=== PATIENT | male | born 1990 | race Caucasian/White ===

== ENCOUNTER 2020-05-04 12:32 | Outpatient (CLI) | payer OTHER, SELFPAY ==
[2020-05-08 14:00] LABS: Testosterone Free 267.5 pg/mL (35.0-155.0); Testosterone Total 877 ng/dL (250-1100)
== END 2020-05-04 12:33 | disposition home or self-care (01) ==
PROVIDERS: PCP Family Medicine; Visit Provider Nurse Practitioner Family
DX: E29.1 Testicular hypofunction (principal)
CPT/HCPCS: 36415; 84402; 84403

== ENCOUNTER 2020-10-29 10:59 | Outpatient (CLI) | payer OTHER, SELFPAY ==
[2020-10-29 11:16] LABS: Hematocrit 50.9 % (42.0-52.0)
[2020-11-05 19:42] LABS: Testosterone Free 128.4 pg/mL (35.0-155.0); Testosterone Total 479 ng/dL (250-1100)
== END 2020-10-29 11:00 | disposition home or self-care (01) ==
PROVIDERS: PCP Family Medicine; Visit Provider Nurse Practitioner Family
DX: E34.9 Endocrine disorder, unspecified (principal)
CPT/HCPCS: 36415; 84402; 84403; 85014; 85018

== ENCOUNTER 2021-02-14 01:58 | Day surgery (SDC) | payer OTHER, SELFPAY ==
[2021-01-31 15:31] VITALS: BMI 34.0
[2021-02-14 10:26] VITALS: BP 160/99; PULSE 87; RESP 24; TEMP 37.1; O2SAT 99; BMI 33.7
[2021-02-14] MEDS: LACTATED RINGERS 1,000 ML 150 ML IV CONT (10:34)
--- NOTE | 2021-02-14 10:35 | WPDANESEPPF ---
Anes - Initial Pre Proc Eval Procedure: Operation Date: 02/14/21 11:30 Proposed Procedures p Colonoscopy - Royer Cates MD Date/Time: 02/14/21 10:35 Surgeon: Royer Cates MD Pre Op Diagnosis: blood in stool Patient Data Age: 30 Gender: M Height: 1.83 m Weight: 113.1 kg Last Vital Signs Temp 37.1 C 02/14/21 10:26 Pulse 87 02/14/21 10:26 Resp 24 H 02/14/21 10:26 BP 160/99 H 02/14/21 10:26 Pulse Ox 99 02/14/21 10:26 Allergies Allergy/AdvReac Type Severity Reaction Status Date / Time No Known Allergies Allergy Verified 02/14/21 10:25 Home Medications Medication Instructions Recorded Confirmed Type testosterone cypionate 200 mg/mL 200 mg IM .bi weekly #10 ml 10/20/20 01/31/21 Rx intramuscular oil flaxseed 1,000 mg PO DAILY 01/31/21 01/31/21 History gvjmpsdymjyk-hzb-omhp-FA-vit K 1 tablet PO DAILY 01/31/21 01/31/21 History [Adults Multivitamin] valacyclovir [Valtrex] 2,000 mg PO PRN PRN 01/31/21 01/31/21 History Patient hx anesthesia problems: none Family hx anesthesia problems: none Results Review: All pre-operative results and documents have been reviewed as part of the pre-operative evaluation. [facility] Past Medical History Medical History BMI 33.0-33.9,adult BMI 34.0-34.9,adult Family History Family History Father Hypertension Family history of elevated blood lipids Grandparent Hypertension Family history of elevated blood lipids Family history of lung cancer Family history of coronary artery disease Diabetes mellitus Sibling No problems noted. 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 Informed Consent: The patient's anesthetic plan and its attendant risks and benefits were discussed with the patient/family/POA. Questions were solicited and answers provided to the satisfaction of the patient/family/POA.
--- NOTE | 2021-02-14 10:52 | PM.HPGS ---
History of Present Illness History of Present Illness Consent: Risks, benefits, and alternatives have been discussed and questions answered. Patient agrees to proceed with procedure. Chief complaint: blood in stool Narrative: Guero Robert is a 30 year old male with intermittent rectal bleeding, never had colonoscopy Review of Systems Constitutional: Constitutional: Denies headache(s) and Denies weakness Eyes: Eyes: Denies blurry vision ENT: Reports Normal hearing present, Denies headache(s) and Denies neck pain Cardiovascular: Cardiovascular: Denies chest pain and Denies dyspnea Respiratory: Respiratory: Denies dyspnea Gastrointestinal: Gastrointestinal: Reports no additional gastrointestinal complaints Genitourinary: Genitourinary: Denies dysuria Musculoskeletal: Musculoskeletal: Denies neck pain Integumentary/Breasts: Skin/Breast: Denies dry skin Neurologic: Reports Normal hearing present, Denies headache(s) and Denies weakness Psychiatric: Psychiatric: Denies anxiety Endocrine: Endocrine: Denies change in body appearance Hematologic/Lymphatic: Hematologic/Lymphatic: Denies easy bleeding Allergic/Immunologic: Allergic/Immunologic: Denies urticaria PMFSH Past Medical History Medical History BMI 33.0-33.9,adult BMI 34.0-34.9,adult Family History Family History Father Hypertension Family history of elevated blood lipids Grandparent Hypertension Family history of elevated blood lipids Family history of lung cancer Family history of coronary artery disease Diabetes mellitus Sibling No problems noted. 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 Gender identity (if verbalized by the patient): Male Spiritual care concerns: No Meds Home Medications and Allergies Home Medications Medication Instructions Recorded Confirmed Type testosterone cypionate 200 mg/mL 200 mg IM .bi weekly #10 ml 10/20/20 01/31/21 Rx intramuscular oil flaxseed 1,000 mg PO DAILY 01/31/21 01/31/21 History ikfsdqnbfewf-yzk-otti-FA-vit K 1 tablet PO DAILY 01/31/21 01/31/21 History [Adults Multivitamin] valacyclovir [Valtrex] 2,000 mg PO PRN PRN 01/31/21 01/31/21 History Allergies Allergy/AdvReac Type Severity Reaction Status Date / Time No Known Allergies Allergy Verified 02/14/21 10:25 Vital Signs Vital Signs - 24 hr 02/14/21 10:26 Temperature 98.7 F Pulse Rate 87 Respiratory Rate 24 H Blood Pressure 160/99 H Pulse Oximetry 99 Exam Const: General: comfortable and no acute distress HENMT: General nose exam: Normal nares present Eyes: General: appearance normal, both eyes and all related structures Neck: Neck: no JVD Resp: Auscultation: clear to auscultation bilaterally Cardio: Rate: regular rate Rhythm: regular rhythm GI: Inspection: non-distended GI Palp: Yes Soft to palpation Skin: General skin exam: normal color Neuro: General: gait normal Speech: normal speech Extrem: General: normal to inspection Psych: Mental Status: mental status grossly normal Assessment and Plan Assessment and plan (1) Hematochezia: Code(s): K92.1 - Melena Status: Acute Assessment and Plan: colonoscopy to assess source of bleeding
[2021-02-14 11:23] VITALS: BP 125/83; PULSE 94; RESP 25; O2SAT 98
[2021-02-14 11:33] VITALS: BP 136/95; PULSE 82; RESP 22; O2SAT 98
[2021-02-14 11:43] VITALS: BP 133/91; PULSE 83; RESP 13; O2SAT 98
== END 2021-02-14 11:59 | disposition home or self-care (01) ==
PROVIDERS: PCP Family Medicine; Visit Provider Internal Medicine Gastroenterology
PROC: 0DJD8ZZ Inspection of Lower Intestinal Tract, Via Natural or Artificial Opening Endoscopic (ICD-10-PCS; CPT 45378; principal; 2021-02-14 11:30)
DX: K92.1 Melena (principal); K64.8 Other hemorrhoids; Z87.891 Personal history of nicotine dependence
CPT/HCPCS: 45378; J2704; J7120

== ENCOUNTER 2021-09-21 10:26 | Outpatient (CLI) | payer OTHER, SELFPAY ==
[2021-09-25 18:10] LABS: Testosterone Free 80.5 pg/mL (35.0-155.0); Testosterone Total 347 ng/dL (250-1100)
== END 2021-09-21 10:27 | disposition home or self-care (01) ==
LOC: ANHLAB 10:28
PROVIDERS: PCP Family Medicine; Visit Provider Nurse Practitioner Family
DX: E34.9 Endocrine disorder, unspecified (principal)
CPT/HCPCS: 36415; 84402; 84403

== ENCOUNTER 2021-11-17 07:03 | Outpatient (CLI) | payer OTHER, SELFPAY ==
[2021-11-17 07:25] LABS: Hematocrit 50.6 % (42.0-52.0); Hemoglobin 16.9 g/dL (14.0-18.0); Mean Corpuscular HGB Conc 33.4 g/dl (32-36); Mean Corpuscular Volume 89.7 fl (80-100); Mean Platelet Volume 9.9 fl (7.4-10.4); Platelet Count Result 240 k/mm3 (150-375); Red Blood Count 5.64 M/mm3 (4.6-6.20); Red Cell Distribution Width 12.7 % (11.5-14.5); White Blood Count 5.6 K/mm3 (4.5-10.0)
[2021-11-17 07:43] LABS: Alanine Aminotransferase 21 U/L (6-50); Albumin Level 4.6 g/dL (3.5-5.1); Alkaline Phosphatase 57 U/L (38-126); Anion Gap 10 mmol/L (8-16); Aspartate Amino Transferase 33 U/L (17-59); Bilirubin,Total 0.5 mg/dL (0.2-1.3); Blood Urea Nitrogen 16 mg/dL (9-20); Calcium 9.2 mg/dL (8.4-10.2); Carbon Dioxide 25 mmol/L (22-30); Chloride 101 mmol/L (98-107); Cholesterol 243 mg/dL (0-200); Estimated Glomerular Filt Rate > 60; Glucose 111 mg/dL (65-110); HDL Direct 32 mg/dL; Potassium 4.4 mmol/L (3.4-5.0); Sodium 136 mmol/L (137-145); Triglycerides 136 mg/dL (<150)
[2021-11-17 07:54] LABS: LDL Cholesterol Direct 163 mg/dL
[2021-11-17 08:08] LABS: Prostate Specific Antigen 0.7 ng/mL (< OR = 4.0)
[2021-11-21 17:33] LABS: Testosterone Free 70.8 pg/mL (35.0-155.0); Testosterone Total 265 ng/dL (250-1100)
== END 2021-11-17 07:04 | disposition home or self-care (01) ==
LOC: ANHLAB 07:04
PROVIDERS: PCP Family Medicine; Visit Provider Nurse Practitioner Family
DX: E29.1 Testicular hypofunction (principal); I10 Essential (primary) hypertension
CPT/HCPCS: 36415; 80053; 80061; 84153; 84402; 84403; 84443; 85027

== ENCOUNTER 2021-12-06 08:41 | Outpatient (CLI) | payer OTHER, SELFPAY ==
--- NOTE | 2022-01-04 20:28 | WPDSLEEPSTUD ---
Sleep Study Date of Study: 12/06/21 Ordering Provider: Vasiliy Kam MD Interpreting Physician: Ladonna Espinoza MD Sleep Study Type: Split Polysomnogram Height: 1.83 m Weight: 118.388 kg Body Mass Index: 35.4 Neck Circumference (inches): 18.5 [place]: 10 Reason for Sleep Study Frequent nighttime awakenings, loud snoring, daytime fatigue even after 8 hours of sleep Sleep History Guero Robert is a 31-year-old man with hypertension who complains of heavy snoring. He is tired in the day even after 8 hours of sleep. His has witnessed apneas. There is a family history with both his father and brother having sleep apnea. He rarely wakes from sleep feeling short of breath. He occasionally awakens at night with heartburn, belching or coughing. His snoring is always extremely loud. He frequently has trouble sleeping with a cold. He occasionally wakes up gasping for breath at night. He constantly has breathing problems at night observed by others. He occasionally sweats excessively at night and occasionally notices his heart beating irregularly at night. He frequently naps regularly when he is not working. 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 he does not fall asleep involuntarily, or while driving. He does not have loss of muscle tone with strong emotion. He rarely has daytime difficulties due to excessive sleepiness. He does not feel paralyzed on waking or falling asleep and does not have vivid dreamlike scenes upon awakening or falling asleep. He does not feel afraid to go to sleep. He occasionally has nightmares. He occasionally has dream recall. He frequently has racing thoughts. He does not feel sad or depressed. He rarely has anxiety. He does not have muscular tension or notice parts of his body jerking. He does not kick at night. He does not have crawling or aching feelings in his legs. He does not have any kind of leg pain at night. He rarely has morning jaw pain. He is not bothered by pain during the day or awakened by pain during the night. He frequently wakes up feeling stiff in the morning. He rarely wakes up with sore achy muscles. He occasionally wakes up with pain in the neck and spine. He has fatigue and he takes antacids regularly. Normal Bedtime is 8:00 p.m. falling asleep within 30 minutes, typically waking 6-8 times at night to reposition himself and then returns to sleep within about 15 minutes. He wakes in the morning by 6:30 a.m.. On weekends, goes to bed by 10:00 p.m. and wakes by 7:00 a.m.. He previously work split or rotating shifts until several weeks before this test. He takes naps in the afternoon or evening. A short nap does not feel refreshing. He is usually drowsy in the morning for about 2 hours after waking. He feels better in the evening compared to other times of day. Habits: Quit tobacco 6 years ago. Caffeine 6 cups of beverages throughout the day. Alcohol 6-8 ever does on the weekends. No recreational drugs PMFSH Past Medical History Medical History (Updated 01/09/22 @ 12:23 by Ladonna Espinoza MD) BMI 33.0-33.9,adult BMI 34.0-34.9,adult BMI 35.0-35.9,adult GERD without esophagitis Hypertension Family History Family History Father Hypertension Family history of elevated blood lipids Sleep apnea Grandparent Hypertension Family history of elevated blood lipids Family history of lung cancer Family history of coronary artery disease Diabetes mellitus Sibling Sleep apnea Mother Anxiety Social History Social History Smoking packs per day: 0.5 Smoking cigarettes per day: 10.0 Years smoked: 5 Smoking pack-years: 2.50 Smoking status: Former smoker Tobacco type: cigarettes Second hand tobacco smoke exposure: No Alcohol intake: current Drinks per week: 12 Alcohol use details: 12 beers weekly, recently cut back Substance use: never
[2022-01-09 12:14] VITALS: BMI 35.4
== END 2021-12-07 06:30 | disposition home or self-care (01) ==
LOC: ANHCSM 08:43
PROVIDERS: PCP Family Medicine; Visit Provider Family Medicine
DX: G47.33 Obstructive sleep apnea (adult) (pediatric) (principal); G47.10 Hypersomnia, unspecified; F51.8 Other sleep disorders not due to a substance or known physiological condition
CPT/HCPCS: 95811

== ENCOUNTER 2023-06-21 07:48 | Outpatient (CLI) | payer BC, SELFPAY ==
[2023-06-21 09:05] LABS: Anion Gap 8 mmol/L (8-16); Blood Urea Nitrogen 19 mg/dL (9-20); Calcium 9.6 mg/dL (8.4-10.2); Carbon Dioxide 27 mmol/L (22-30); Chloride 104 mmol/L (98-107); Cholesterol 274 mg/dL (0-200); Estimated Glomerular Filt Rate > 60; Glucose 109 mg/dL (65-110); HDL Direct 37 mg/dL; Potassium 4.5 mmol/L (3.4-5.0); Sodium 139 mmol/L (137-145); Triglycerides 215 mg/dL (<150)
[2023-06-21 09:16] LABS: LDL Cholesterol Direct 185 mg/dL
[2023-06-21 09:24] LABS: Hematocrit 45.2 % (42.0-52.0); Hemoglobin 15.2 g/dL (14.0-18.0); Mean Corpuscular HGB Conc 33.6 g/dl (32-36); Mean Corpuscular Hemoglobin 29.8 pg (26-34); Mean Corpuscular Volume 88.6 fl (80-100); Mean Platelet Volume 10.6 fl (7.4-10.4); Platelet Count Result 251 k/mm3 (150-375); Red Cell Distribution Width 12.5 % (11.5-14.5); White Blood Count 5.6 K/mm3 (4.5-10.0)
[2023-06-24 12:54] LABS: FSH 5.9 mIU/mL (1.4-12.8); LH 4.4 mIU/mL (1.5-9.3)
[2023-06-28 10:11] LABS: Testosterone Free 57.7 pg/mL (35.0-155.0); Testosterone Total 186 ng/dL (250-1100)
== END 2023-06-21 07:49 | disposition home or self-care (01) ==
LOC: ANHLAB 07:49
PROVIDERS: PCP Family Medicine; Visit Provider Family Medicine
DX: E29.1 Testicular hypofunction (principal); I10 Essential (primary) hypertension; E34.9 Endocrine disorder, unspecified; Z13.220 Encounter for screening for lipoid disorders
CPT/HCPCS: 36415; 80048; 80061; 83001; 83002; 84402; 84403; 84443; 85027

== ENCOUNTER 2023-08-13 16:13 | Outpatient (CLI) | payer BC, SELFPAY ==
--- NOTE | ~2023-08-13 | XR_ITS ---
EXAMINATION: XR chest 2V Exam Date/Time: 08/13/2023 16:20 CDT HISTORY: R07.89 - Other chest pain Comparison: None. RESULT: Lines, tubes, and devices: None. Lungs and pleura: Clear. Cardiomediastinal silhouette: Unremarkable. Other: No acute osseous or upper abdominal finding. IMPRESSION: No acute cardiopulmonary process. Reviewed, dictated and finalized at location K.
== END 2023-08-13 16:14 | disposition home or self-care (01) ==
LOC: ANHIMG 16:15
PROVIDERS: PCP Family Medicine; Visit Provider Nurse Practitioner Family
DX: R07.89 Other chest pain (principal)
CPT/HCPCS: 71046

== ENCOUNTER 2023-10-10 11:50 | Outpatient (CLI) | payer BC, SELFPAY ==
[2023-10-10 12:21] LABS: Hemoglobin A1C 5.3 % (<5.7)
[2023-10-10 12:23] LABS: Basophils Percent Auto 0.7 % (0.2-1.2); Eosinophils Absolute Auto 0.1 K/mm3 (0-0.3); Eosinophils Percent Auto 1.5 % (0-4.4); Hematocrit 47.8 % (42.0-52.0); Hemoglobin 16.1 g/dL (14.0-18.0); Immature Granulocyte Absolute 0.03 K/mm3 (0.00-0.031); Immature Granulocyte Percent A 0.5 % (0-0.5); Lymphocytes Absolute Auto 2.29 K/mm3 (0.9-3.2); Lymphocytes Percent Auto 39.3 % (18.3-44.2); Mean Corpuscular HGB Conc 33.7 g/dl (32-36); Mean Corpuscular Hemoglobin 30.1 pg (26-34); Mean Corpuscular Volume 89.3 fl (80-100); Mean Platelet Volume 9.8 fl (7.4-10.4); Monocytes Absolute Auto 0.5 K/mm3 (0.1-0.6); Monocytes Percent Auto 9.1 % (2.6-8.5); Neutrophils Absolute Auto 2.8 K/mm3 (1.3-6.7); Neutrophils Percent Auto 48.9 % (45.5-73.1); Platelet Count Result 253 k/mm3 (150-375); Red Blood Count 5.35 M/mm3 (4.6-6.20); Red Cell Distribution Width 12.3 % (11.5-14.5); White Blood Count 5.8 K/mm3 (4.5-10.0)
[2023-10-15 06:23] LABS: Testosterone Free 183.9 pg/mL (35.0-155.0); Testosterone Total 620 ng/dL (250-1100)
== END 2023-10-10 11:51 | disposition home or self-care (01) ==
LOC: ANHLAB 11:52
PROVIDERS: PCP Family Medicine; Visit Provider Physician Assistant Medical
DX: E29.1 Testicular hypofunction (principal); I10 Essential (primary) hypertension; E34.9 Endocrine disorder, unspecified
CPT/HCPCS: 36415; 83036; 84402; 84403; 85025

== ENCOUNTER 2023-11-29 08:29 | Outpatient (CLI) | payer BC, SELFPAY ==
--- NOTE | 2023-11-29 08:38 | EST_ITS ---
Patient Info Name: Guero Robert Age: 33 years : 1990 Gender: Male Ht: 72 in Wt: 256 lbs BSA: 2.47 m2 HR: 76 bpm BP: 141 / 87 mmHg Heart Rhythm: Sinus Rhythm Exam Date: 11/29/2023 8:50 AM Exam Location: [facility] Patient Status: Outpatient Admit Date: 11/29/2023 Staff Ordering Physician: Stephanie Bell PAC Attending Provider: Stephanie Bell Exercise Technologist: Florina Smith, BANDAR Exercise Physician: Ford Kim DO Exam Type: CA stress test treadmill Study Info Indications R07.89 - Other chest pain A treadmill exercise stress test was performed. Summary 1. 1. Negative Adam exercise stress test for ischemic ST changes by ECG criteria. 2. 2. Good functional capacity, achieving 12 METs of workload. 3. 3. Appropriate HR response to exercise. 4. 4. Appropriate HR recovery at 1 minute post exercise. 5. 5. No imaging with stress testing. 6. 6. Patient informed of the above results. Protocol: Adam Stress ECG Details Stage: REST Duration (min): 1 min : 6 sec Speed (mph): 0.0 Grade (%): 0 HR (bpm): 73 SBP (mmHg): 141 DBP (mmHg): 87 METS: --- Stage: REST Duration (min): 5 min : 47 sec Speed (mph): 0.0 Grade (%): 0 HR (bpm): 84 SBP (mmHg): 141 DBP (mmHg): 87 METS: --- Stage: STAGE 1 Duration (min): 1 min : 0 sec Speed (mph): 1.7 Grade (%): 10 HR (bpm): 103 SBP (mmHg): 141 DBP (mmHg): 87 METS: --- Stage: STAGE 1 Duration (min): 2 min : 0 sec Speed (mph): 1.7 Grade (%): 10 HR (bpm): 104 SBP (mmHg): 141 DBP (mmHg): 87 METS: --- Stage: STAGE 1 Duration (min): 3 min : 0 sec Speed (mph): 1.7 Grade (%): 10 HR (bpm): 108 SBP (mmHg): 147 DBP (mmHg): 84 METS: --- Stage: STAGE 2 Duration (min): 1 min : 0 sec Speed (mph): 2.5 Grade (%): 12 HR (bpm): 118 SBP (mmHg): 147 DBP (mmHg): 84 METS: --- Stage: STAGE 2 Duration (min): 2 min : 0 sec Speed (mph): 2.5 Grade (%): 12 HR (bpm): 125 SBP (mmHg): 155 DBP (mmHg): 81 METS: --- Stage: STAGE 2 Duration (min): 3 min : 0 sec Speed (mph): 2.5 Grade (%): 12 HR (bpm): 125 SBP (mmHg): 155 DBP (mmHg): 81 METS: --- Stage: STAGE 3 Duration (min): 1 min : 0 sec Speed (mph): 3.4 Grade (%): 14 HR (bpm): 134 SBP (mmHg): 154 DBP (mmHg): 62 METS: --- Stage: STAGE 3 Duration (min): 2 min : 0 sec Speed (mph): 3.4 Grade (%): 14 HR (bpm): 135 SBP (mmHg): 154 DBP (mmHg): 62 METS: --- Stage: STAGE 3 Duration (min): 3 min : 0 sec Speed (mph): 3.4 Grade (%): 14 HR (bpm): 140 SBP (mmHg): 179 DBP (mmHg): 73 METS: --- Stage: STAGE 4 Duration (min): 1 min : 0 sec Speed (mph): 4.2 Grade (%): 16 HR (bpm): 158 SBP (mmHg): 179 DBP (mmHg): 73 METS: --- Stage: STAGE 4 Duration (min): 2 min : 0 sec Speed (mph): 4.2 Grade (%): 16 HR (bpm): 163 SBP (mmHg): 180 DBP (mmHg): 78 METS:
== END 2023-11-29 08:30 | disposition home or self-care (01) ==
PROVIDERS: PCP Family Medicine; Visit Provider Physician Assistant Medical
DX: R07.89 Other chest pain (principal)
CPT/HCPCS: 93017

== ENCOUNTER 2024-02-08 07:05 | Outpatient (CLI) | payer BC, SELFPAY ==
--- NOTE | ~2024-02-08 | CT_ITS ---
EXAMINATION:CT diagnostic chest wo con DATE: 02/08/2024 07:26 INDICATION: Other chest pain. TECHNIQUE: Computed tomography (CT) of the chest was performed without intravenous contrast. Automate d exposure control and iterative reconstruction technique were employed. The dose-length product (DLP ) was 713.43 mGy-cm. COMPARISON: Chest 2 views 08/13/2023 FINDINGS: There is no pneumonia or pleural effusion. The heart size is normal. No pericardial effusio n. There is diffuse hepatic steatosis. There is mild bilateral gynecomastia. There is no lymphadenopa thy. There is mild thoracic spondylosis. There is levoscoliosis of upper thoracic spine. IMPRESSION: 1. Diffuse hepatic steatosis. Reviewed, dictated and finalized at location B.
== END 2024-02-08 07:06 | disposition home or self-care (01) ==
LOC: ANHIMG 07:08
PROVIDERS: PCP Family Medicine; Visit Provider Internal Medicine Cardiovascular Disease
DX: R07.89 Other chest pain (principal); K76.0 Fatty (change of) liver, not elsewhere classified
CPT/HCPCS: 71250

== ENCOUNTER 2024-03-23 11:34 | Emergency (ER) | payer BC, SELFPAY ==
--- NOTE | ~2024-03-23 | CT_ITS ---
Noncontrast CT scan of the right hip CLINICAL HISTORY: Pain TECHNIQUE: Axial noncontrast imaging of the right hip was performed. Sagittal and coronal reformatted images were constructed. Dose reduction technique was used on this scan by utilizing automated expos ure control and iterative reconstruction technique. The dose-length product (DLP) was 744.43 mGy-cm. Findings: No fracture or dislocation seen. Right hip joint space is unremarkable. Bilateral SI joints are unremarkable. No joint effusion evident. Visualized musculature about the right hip region is unremarkable. No soft tissue mass or fluid colle ction identified. No inflammatory change identified. IMPRESSION: No significant abnormality seen. Reviewed, dictated and finalized at location . ER TROLL LINE
--- NOTE | ~2024-03-23 | XR_ITS ---
AP view of the pelvis and AP and lateral views of the right hip Clinical history: Pain Findings: No acute fracture or dislocation is seen. Osseous alignment is anatomic. Bilateral hip and SI joint spaces are preserved. Soft tissues are unremarkable. Impression: No significant abnormality is seen. Reviewed, dictated and finalized at [facility]. 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
[2024-03-23 11:54] VITALS: BP 144/89; PULSE 91; RESP 20; TEMP 36.9; O2SAT 99
[2024-03-23] MEDS: MORPHINE SULFATE (*CRX) 4 MG/ML INJ IV PUSH (12:06)
--- NOTE | 2024-03-23 14:39 | ED_ITS ---
HPI - General Adult General Chief complaint: Extremity Injury, Lower Stated complaint: R thigh pain Time Seen by Provider: 03/23/24 11:59 History of Present Illness HPI narrative: the patient is a 33-year-old gentleman presents emergency department with chief complaint of right posterior thigh pain. The patient reports he was moving a treadmill reported that he felt a tearing sensation in his right buttock area. Patient reports the pain radiated down his right mid thigh patient denies numbness or tingling denies bowel or bladder incontinence. Related Data Home Medications ?Medication ?Instructions ?Recorded ?Confirmed ?Last Taken ?Type multivit with minerals-iron 18 1 tablet PO DAILY 01/31/21 03/04/24 02/12/21 History mg-folic ac 400 mcg-vit K 25 mcg tablet (Adults Multivitamin) psyllium husk 0.4 gram capsule 0.4 g PO DAILY 08/13/23 03/04/24 Unknown History (Daily Fiber) Allergies Allergy/AdvReac Type Severity Reaction Status Date / Time lisinopril AdvReac Intermediate cough Verified 03/04/24 15:01 Review of Systems Review of Systems: A 10 system review of systems was completed on the patient and is negative except for what is stated in the HPI. Nursing and ancillary documentation was reviewed. [facility] Past Medical History Medical History Witnessed apneic spells Hypertension BMI 35.0-35.9,adult Edmondson splint of right lower extremity Erectile dysfunction GERD without esophagitis Herpes simplex without complication Surgical History Surgical History Hx of circumcision H/O adenoidectomy Family History Family History Father Hypertension Family history of elevated blood lipids Sleep apnea Grandparent Hypertension Family history of elevated blood lipids Family history of lung cancer Family history of coronary artery disease Diabetes mellitus Sibling Sleep apnea Mother Anxiety Social History Social History Smoking packs per day: 0.5 Smoking cigarettes per day: 10.0 Years smoked: 5 Smoking pack-years: 2.50 Smoking status: Former smoker Tobacco type: cigarettes Second hand tobacco smoke exposure: No Alcohol intake: current Drinks per week: 12 Alcohol use details: 12 beers weekly, recently cut back Substance use: never Substance use type: does not use Do You Feel Safe in your Home?: Yes Lack of Transportation: No Lack of Food: Never True Current Housing: I Have Housing Concerned About Future Housing: No Difficulty Paying Gas/Electric Bills: No Difficulty Paying for Meds: No Currently Unemployed: No Education: Bachelor's Degree Difficulty w/ Childcare or Family Care: No Living arrangements: with family Occupation/Education: occupation 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 HEAD: Normocephalic, atraumatic. EYES: PERRLA and EOMI. ENT: Nares clear, no rhinorrhea or epistaxis. Mucous membranes moist. NECK: Supple. CHEST: Clear to auscultation. No respiratory distress. HEART: Regular rate and rhythm. No murmur heard. Normal peripheral pulses. ABDOMEN: Soft, nontender, nondistended, normal active bowel sounds. EXTREMITIES: Normal range of motion Tenderness palpation the right gluteal region. No edema. SKIN: Warm, dry, no rash. NEURO: No focal deficits. Alert and oriented x3. PSYCH: Normal mood and affect. Course Course Emergency Course: differential diagnosis includes fracture, muscle strain plain film x-ray showed no evidence of fracture. CT scan showed no evidence of fluid collection or injury to the muscle Vital Signs Vital signs: Vital Signs Temperature 36.9 C 03/23/24 11:54 Pulse Rate 91 03/23/24 11:54 Respiratory Rate 20 03/23/24 11:54 Blood Pressure 144/89 H 03/23/24 11:54 Pulse Oximetry 99 03/23/24 11:54 Oxygen Delivery Room Air 03/23/24 11:54 Temperature 36.9 C 03/23/24 11:54 Pulse Rate 91 03/23/24 11:54 Respiratory Rate 20 03/23/24 11:54 Blood Pressure 144/89 H 03/23/24 11:54 Pulse Oximetry 99 03/23/24 11:54 Oxygen Delivery Room Air 03/23/24 11:54 Medical Decision Making Vital Signs Vital Signs: Vital Signs Temperature 36.9 C 03/23/24 11:54 Pulse Rate 91 03/23/24 11:54 Respiratory Rate 20 03/23/24 11:54 Blood Pressure 144/89 H 03/23/24 11:54 Pulse Oximetry 99 03/23/24 11:54 Oxygen Delivery Room Air 03/23/24 11:54 Temperature 36.9 C 03/23/24 11:54 Pulse Rate 91 03/23/24 11:54 Respiratory Rate 20 03/23/24 11:54 Blood Pressure 144/89 H 03/23/24 11:54 Pulse Oximetry 99 03/23/24 11:54 Oxygen Delivery Room Air 03/23/24 11:54 Discharge Plan Discharge Clinical Impression: Muscle strain of right gluteal region Patient Disposition: Home, Self-Care Condition: Stable Instructions: Antibiotic Form, Muscle Strain (ED) Patient Language: Nepali Prescriptions: New cyclobenzaprine 10 mg tablet 10 mg PO TID PRN (Reason: muscle spasm) Qty: 21 0RF diclofenac potassium 50 mg tablet 50 mg PO TID PRN (Reason: pain) Qty: 30 0RF No Action psyllium husk [Daily Fiber] 0.4 gram capsule 0.4 g PO DAILY omeprazole 40 mg capsule,delayed release(DR/EC) 40 mg PO DAILY Qty: 90 0RF Adults Multivitamin 18 mg iron-400 mcg-25 mcg Tablet 1 tablet PO DAILY valacyclovir 1 gram tablet See Rx Instructions .ROUTE .COMPLEX Qty: 4 0RF Dose Instruction: TAKE 2 TABLETS BY MOUTH TWICE DAILY NEEDED FOR ONSET OF COLD SORE Rx Instructions: TAKE 2 TABLETS BY MOUTH TWICE DAILY NEEDED FOR ONSET OF COLD SORE losartan 50 mg tablet 50 mg PO DAILY Qty: 90 1RF testosterone cypionate 200 mg/mL oil 200 mg IM .bi weekly Qty: 10 0RF Follow-up/Referrals: Vasiliy Kam MD [Primary Care Provider] - Time of Disposition: 14:44
[2024-03-23 15:05] VITALS: BP 156/72; PULSE 87; RESP 20; TEMP 36.6; O2SAT 98
== END 2024-03-23 15:06 | disposition home or self-care (01) ==
PROVIDERS: Emergency Provider Emergency Medicine; PCP Family Medicine
DX: S76.811A Strain of other specified muscles, fascia and tendons at thigh level, right thigh, initial encounter (principal); I10 Essential (primary) hypertension; K21.9 Gastro-esophageal reflux disease without esophagitis; Z87.891 Personal history of nicotine dependence; Z79.899 Other long term (current) drug therapy; X50.0XXA Overexertion from strenuous movement or load, initial encounter
CPT/HCPCS: 73502; 73700; 96374; 99284; J2270

== ENCOUNTER 2024-12-16 07:25 | Outpatient (CLI) | payer BC, SELFPAY ==
[2024-12-16 08:13] LABS: Hematocrit 46.3 % (42.0-52.0); Hemoglobin 15.3 g/dL (14.0-18.0)
[2024-12-23 13:08] LABS: Free Testosterone (Direct) 5.0 pg/mL (8.7-25.1)
== END 2024-12-16 07:26 | disposition home or self-care (01) ==
LOC: ANHLAB 07:26
PROVIDERS: PCP Family Medicine; Visit Provider Nurse Practitioner Family
DX: E34.9 Endocrine disorder, unspecified (principal)
CPT/HCPCS: 36415; 84402; 84403; 85014; 85018

== ENCOUNTER 2025-03-09 06:55 | Outpatient (CLI) | payer BC, SELFPAY ==
[2025-03-11 16:08] LABS: Free Testosterone (Direct) 31.3 pg/mL (8.7-25.1)
== END 2025-03-09 06:56 | disposition home or self-care (01) ==
LOC: ANHLAB 06:56
PROVIDERS: PCP Family Medicine; Visit Provider Nurse Practitioner Family
DX: E34.9 Endocrine disorder, unspecified (principal)
CPT/HCPCS: 84402; 84403